=== PATIENT | male | born 1985 | race Caucasian/White ===

== ENCOUNTER 2018-12-26 19:03 | Emergency (ER) | payer OTHER ==
[2018-12-26 19:30] VITALS: BP 163/97; PULSE 98; RESP 20; TEMP 99.6; O2SAT 99
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
[2018-12-26] MEDS ORDERED: Silver Sulfadiazine 1% Cream (20 gm) TOP STA (20:20)
[2018-12-26] MEDS ORDERED: Silver Sulfadiazine 1% Cream (20 gm) ONE (20:32)
== END 2018-12-26 22:13 | disposition home or self-care (01) ==
LOC: C.ER 19:03
DX: L55.1 Sunburn of second degree (principal)